=== PATIENT | male | born 1975 | race Caucasian/White ===

== ENCOUNTER 2018-02-05 08:20 | Emergency (ER) | payer SELFPAY ==
[2018-02-05] MEDS ORDERED: Metoclopramide HCl 10 MG/2 ML VIAL ONE (09:11)
[2018-02-05 09:17] LABS: Hemoglobin 17.8 g/dL (14.0-18.0); Mean Corpuscular HGB CONC 32.5 g/dL (32.0-36.0); Mean Corpuscular Hemoglobin 32.1 pg (27.0-31.0); Mean Corpuscular Volume 98.5 fl (80.0-94.0); Mean Platelet Volume 8.2 fL (7.4-10.4); Platelet Count 196 thou/uL (130-400); RBC Distribution Width 12.2 % (11.5-14.5); Red Blood Cell (RBC) Count 5.55 mill/uL (4.70-6.10); White Blood Cell (WBC) Count 7.6 thou/uL (4.8-10.8)
[2018-02-05 09:41] LABS: Band 10 % (5-11); Eosinophils 2 % (0-10); Lymphocytes 20 % (21-51); MDiff Complete? YES; Monocytes 8 % (0-10); Neutrophil 48 % (42-75); PLT Morphology Comment Appears Adequate; RBC Morphology Normal; Reactive Lymphocytes 12 % (0-10)
[2018-02-05 09:44] LABS: CKMB 0.9 ng/mL (0-6.6); Troponin I Less than 0.010 ng/mL (< 0.028)
[2018-02-05 10:09] LABS: ALT (SGPT) 313 U/L (8-55); AST (SGOT) 224 U/L (5-34); Albumin 4.6 g/dL (3.5-5.0); Alkaline Phosphatase 72 U/L (40-150); Anion Gap 15 mmol/L (10-20); BUN (Urea Nitrogen) 8 mg/dL (8.9-20.6); Bilirubin, Total 0.8 mg/dL (0.2-1.2); CK (CPK) 146 U/L (30-200); Calc. Creatinine Clearance 0 mL/min (70-130); Calcium 9.9 mg/dL (7.8-10.44); Carbon Dioxide 24 mmol/L (22-29); Chloride 101 mmol/L (98-107); Estimated GFR-MDRD Greater than 90; Globulin 3.4 g/dL (2.4-3.5); Glucose 94 mg/dL (70-105); Lipase 68 U/L (8-78); Potassium 4.3 mmol/L (3.5-5.1); Sodium 136 mmol/L (136-145)
--- NOTE | 2018-02-05 10:27 | CT ---
CT ABDOMEN AND PELVIS WITH IV CONTRAST: HISTORY: Progressively worsening abdominal pain and cramping. FINDINGS: There is a small infiltrate versus atelectatic change in the medial segment of the right middle lobe. No pleural effusions are seen. The liver, spleen, pancreas, adrenal glands, and kidneys are normal . No calcified gallstones are seen. No free air or free fluid is noted in the abdomen or pelvis. There are prominent periaortic lymph no alie, the largest measuring about 8 mm. An 11 mm lymph node is seen in the periportal region. There are vascular calcifications without evidence of aneurysmal dilatation of the abdominal aorta. There are mild degenerative changes in the spine. The small bowel loops are not abnormally dilated. A nor mal-appearing appendix is seen. There is mild colonic diverticulosis. IMPRESSION: 1. Mild colonic diverticulosis. 2. Prominent abdominal lymph nodes. 3. Small area of infiltrate versus atelectatic change in the right middle lobe. POS: [facility]
[2018-02-05] MEDS ORDERED: ISOVUE-370 76%-LOCM 1 ML ONE (10:33)
[2018-02-05] MEDS ORDERED: Ondansetron ODT 4 MG TAB ONE (11:10)
--- NOTE | 2018-02-05 12:15 | ULT ---
GALLBLADDER ULTRASOUND: HISTORY: Right upper quadrant pain. FINDINGS: Real-time imaging of the right upper quadrant demonstrates small echogenic foci, which does not show definite shadowing and which are within the gallbladder lumen. The gallbladder is slightly contracte d, but the gallbladder wall appears slightly thickened. There is an area of some ring-down artifact in the fundus region. Some of these changes could represent adenomyomatosis. The common duct is 3 m m. The technologist reports a negative ultrasound Hawthorne sign. The visualized liver parenchyma is mildly heterogeneous, but I do not see any discrete mass. The rig ht kidney is normal in size and not obstructed. The pancreas is obscured. IMPRESSION: Slightly underdistended gallbladder but there is suggestion of some slight gallbladder wall thickenin g and some echogenic areas along the gallbladder wall. One area shows some suggestion of some ring-d own artifact in the fundus region. I suspect these changes are on the basis of adenomyomatosis. No definite gallstones identified. POS: [facility]
--- NOTE | 2018-02-05 18:08 | HP ---
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 He has been having epigastric pain for many weeks intermittently. He will experience this pain postprandial. The patient, in addition, drinks a 12 pack of beer per day. He has been trying to quit drinking, trying to wean himself off the beer, but has been experiencing anxi ety and shakiness. He also states he does not smoke, but he only quit two days ago when smoked more than pack a day prior. He is . He states he is trying to stop smoking and quit drinking. He presents to the emergency room with abdominal pain. I am called by nurse practitioner after his wor kup. His white count is 7, hemoglobin 17. Comprehensive metabolic profile normal except for AST, AL T [address] scan of abdomen and pelvis obtained is unremarkable except for colonic diverticu losis, some prominent abdominal lymph nodes 11 to 8 mm. Some atelectatic changes in the right middle lobe. Ultrasound of the gallbladder obtained revealed some echogenic foci and a under-distended gal lbladder with some echogenic areas along the gallbladder wall. There could be some possible changes of adenoma mitosis. Sonographic Hawthorne sign is not reported. There is no ductal biliary dilatation. Common bile duct is 3 mm. ALLERGIES: None. SOCIAL HISTORY: Tobacco pack a day until two days ago when he quit. Alcohol 12 pack a day, recently attempted alcohol weaning and cessation. PAST SURGICAL HISTORY: Nasal surgery, finger surgery, traumatic. PAST MEDICAL HISTORY: Noncontributory. SOCIAL HISTORY: The patient is , works as a cabinet work. REVIEW OF SYSTEMS: A 12-point review of systems is unremarkable. PHYSICAL EXAMINATION: VITAL SIGNS: Blood pressure 130/74, respiratory rate 16, heart rate 74. HEENT: Sclerae nonicteric. SKIN: Nonjaundiced. LUNGS: Clear to auscultation. CARDIAC: Regular rate and rhythm without murmur or gallop. ABDOMEN: Soft but slightly protruded. Slight tenderness with voluntary guarding epigastric, right u pper quadrant, left upper quadrant. EXTREMITIES: No edema. ASSESSMENT AND PLAN: 1. History of alcoholism. Patient is trying to quit alcohol. 2. History of tobacco abuse, cessation over 2 days trying to quit. 3. Gallbladder ultrasound abnormalities consistent with possible small stones and . Could cons ider laparoscopic cholecystectomy, but I told him today that laparoscopic cholecystectomy would not a lleviate all of his symptoms that other possibilities include gastritis and alcohol hepatitis. His t ransaminases are elevated. He is trying to quit drinking alcohol. Consideration for laparoscopic ch olecystectomy and EGD could be given, but patient declines. He does take omeprazole [id number] for many years finding this to have helped some of symptoms in the past. I have encouraged him to d o that and in fact he could consider changing to Nexium double dose [id number] daily. I have t alked to Amanda, nurse practitioner who will give him thiamine and vitamins. I have given him the optio ns of laparoscopic cholecystectomy, EGD, but he has declined and want to think about this. He will a ttempt alcohol cessation, tobacco cessation and follow up in my office in 2-3 weeks.
== END 2018-02-05 12:56 | disposition home or self-care (01) ==
LOC: ERS 08:20
DX: K80.20 Calculus of gallbladder without cholecystitis without obstruction (principal); K29.20 Alcoholic gastritis without bleeding; Z79.82 Long term (current) use of aspirin
CPT/HCPCS: 74177; 76705; 80053; 82553; 83690; 84484; 85025; 96365; 96375; J2270; J2765; Q0162

== ENCOUNTER 2018-11-10 08:36 | Emergency (ER) | payer OTHER, SELFPAY ==
[2018-11-10] MEDS ORDERED: Ibuprofen 200 MG TAB ONE (09:49)
--- NOTE | 2018-11-10 10:11 | RAD ---
RIGHT SHOULDER THREE VIEWS: INDICATIONS: Right shoulder pain. FINDINGS: No fracture or dislocation. The AC joint is normally aligned. IMPRESSION: No acute findings. POS: [facility]
== END 2018-11-10 10:14 | disposition home or self-care (01) ==
LOC: ERS 08:36
DX: M25.511 Pain in right shoulder (principal); K21.9 Gastro-esophageal reflux disease without esophagitis; Z79.82 Long term (current) use of aspirin; Z79.899 Other long term (current) drug therapy

== ENCOUNTER 2019-02-13 09:43 | Emergency (ER) | payer OTHER ==
[2019-02-13 10:23] LABS: #Eosinphils 0.2 thou/uL (0.0-0.7); #Lymphocytes 1.8 thou/uL (1.20-3.40); #Monocytes 0.5 thou/uL (0.11-0.59); #Neutrophils 3.2 thou/uL (1.40-6.50); %Basophils 0.1 % (0.0-1.0); %Eosinophils 3.9 % (0.0-10.0); %Lymphocytes 31.5 % (21.0-51.0); %Monocytes 8.7 % (0.0-10.0); %Neutrophils 55.9 % (42.0-75.0); Hemoglobin 17.4 g/dL (14.0-18.0); Mean Corpuscular Hemoglobin 32.3 pg (27.0-31.0); Mean Corpuscular Volume 97.7 fL (78.0-98.0); Mean Platelet Volume 8.9 fL (7.4-10.4); Platelet Count 146 thou/uL (130-400); RBC Distribution Width 12.7 % (11.5-14.5); White Blood Cell (WBC) Count 5.7 thou/uL (4.8-10.8)
[2019-02-13 10:40] LABS: ALT (SGPT) 254 U/L (8-55); AST (SGOT) 188 U/L (5-34); Albumin 4.5 g/dL (3.5-5.0); Alkaline Phosphatase 59 U/L (40-150); Anion Gap 12 mmol/L (10-20); BUN (Urea Nitrogen) 9 mg/dL (8.9-20.6); Bilirubin, Total 0.9 mg/dL (0.2-1.2); Calc. Creatinine Clearance 0 mL/min (70-130); Calcium 9.5 mg/dL (7.8-10.44); Carbon Dioxide 24 mmol/L (22-29); Chloride 102 mmol/L (98-107); Estimated GFR-MDRD Greater than 90; Globulin 3.5 g/dL (2.4-3.5); Glucose 133 mg/dL (70-105); Lipase 83 U/L (8-78); Potassium 3.8 mmol/L (3.5-5.1); Sodium 134 mmol/L (136-145)
--- NOTE | 2019-02-13 11:28 | ULT ---
ULTRASOUND ABDOMEN LIMITED: (RIGHT UPPER QUADRANT) 02/13/2019 10:59 a.m. HISTORY: A 43-year-old male with right upper quadrant abdominal pain. FINDINGS: Gallbladder: slightly contracted. This may be because the patient is not n.p.o. He ate breakfast with Dr. Malik. The gallbladder wall appears thickened, 5 mm, but that could be due to the contrac hunter state. Alternatively, this could be due to chronic cholecystitis. Again noted is the ring-down artifact arising from a tiny echogenic focus in the gallbladder wall, consistent with adenomyomatosis . No pericholecystic fluid. Common duct: 5 mm. Liver: Echogenicity within normal limits. Pancreas: Nonspecific sonographic appearance. Right kidney: No hydronephrosis. There has been no interval change since 02/05/2018. IMPRESSION: 1. Evidence for adenomyomatosis of the gallbladder. 2. If there is clinical concern for chronic cholecystitis, a nuclear medicine hepatobiliary scan wit h CCK administration, may be useful. 3. Otherwise negative. SRIDEVI Ordoñez POS: [facility]
[2019-02-13 11:55] LABS: Prothrombin Time 13.6 SEC (12.0-14.7)
--- NOTE | 2019-02-14 11:22 | EKG ---
Test Reason : Blood Pressure : / mmHG Vent. Rate : 081 BPM Atrial Rate : 081 BPM P-R Int : 140 ms QRS Dur : 086 ms QT Int : 358 ms P-R-T Axes : 056 003 018 degrees QTc Int : 415 ms Normal sinus rhythm Normal ECG Confirmed by IDRIS JACOB DO ([id number]), science editor ASIA BARRON ([id number]) on 02/14/2019 11:22:07 AM Referred By: Confirmed By:IDRIS JACOB DO
== END 2019-02-13 12:00 | disposition home or self-care (01) ==
LOC: ERS 09:43
DX: K80.50 Calculus of bile duct without cholangitis or cholecystitis without obstruction (principal); K21.9 Gastro-esophageal reflux disease without esophagitis; F17.210 Nicotine dependence, cigarettes, uncomplicated; Z79.82 Long term (current) use of aspirin
CPT/HCPCS: 36415; 76705; 80053; 83690; 84484; 85025; 85610; 85730; 86850; 86900; 86901; 93005

== ENCOUNTER 2019-03-02 08:16 | Day surgery (SDC) | payer OTHER ==
[2019-02-27 08:48] VITALS: BMI 30.5
--- NOTE | 2019-02-27 11:29 | HP ---
HISTORY OF PRESENT ILLNESS: Kvng Benton is a 43-year-old male patient, whom I saw on February 05, 2018, for epigastric pain and nausea. It was felt that he was drinking more than a 12 pack of beer a day as well as rum in addition. He had presented to the emergency room and his liver function tests were normal except for elevated transaminases. CAT scan of the abdomen and pelvis revealed diverticulosis and ultrasound of the gallbladder revealed echogenic foci and nondistended gallbladder concerning for cholelithiasis. He did not have any ductal dilatation. Bile duct was 3 mm. I talked to him at that time regarding alcohol cessation and consideration of cholecystectomy in the future. Since that time, he has cut down to 2 to 3 beers at bedtime. He has continued epigastric right upper quadrant pain intermittently. He presented to the emergency room recently stating that he is ready for his cholecystectomy. In the emergency room, he underwent repeat ultrasound of his gallbladder on 02/13/2019, which revealed an adenomyomatosis of the gallbladder with equivocally thickened gallbladder wall. There were tiny echogenic foci in the gallbladder wall. The plan is for laparoscopic cholecystectomy. He was encouraged to continue efforts with alcohol cessation. On 02/13/2019, white count was 5.7 and hemoglobin was 17.4. Again, his bilirubin was 0.9. AST and ALT 188 and 154. Alkaline phosphatase normal at 59. Lipase was essentially normal. Electrolytes were normal as well as renal function. ALLERGIES: NONE. SOCIAL HISTORY: Tobacco, 2 to 3 cigarettes a day, cut down from a pack a day when I saw him last year. Alcohol, diminished intake remarkably as discussed above. PAST SURGICAL HISTORY: Nasal surgery. MEDICATIONS: 1. Omeprazole. 2. Aspirin 81 mg a day. PRIMARY CARE PHYSICIAN: No primary care physician. REVIEW OF SYSTEMS: Ten-point noncontributory. PHYSICAL EXAMINATION: VITAL SIGNS: Weight 201 pounds, height 5 feet 8 inches, blood pressure 150/94, heart rate 95, temperature 99.5 degrees. HEAD, EARS, EYES, NOSE AND THROAT: Unremarkable. Sclerae are nonicteric. SKIN: Nonjaundiced. LUNGS: Clear to auscultation. CARDIAC: Regular rate and rhythm without murmur or gallop. ABDOMEN: Soft and nontender. No palpable lymphadenopathy. EXTREMITIES: Without edema. ABDOMEN: Soft. Mild tenderness in his right upper quadrant with protuberant abdomen without fluid wave. ASSESSMENT AND PLAN: 1. Cholecystitis. Suspect cholelithiasis and adenomyomatosis. Recommend laparoscopic video cholecystectomy. Risks of infection, bleeding, visceral and biliary injury discussed. Questions were answered. 2. Alcohol, diminished intake. Encourage cessation. 3. Tobacco, diminished use. Encourage cessation. Job ID: [id number]
[2019-03-02] MEDS ORDERED: Ketorolac Tromethamine 30 MG/ML VIAL ONE (09:49)
[2019-03-02] MEDS ORDERED: Midazolam HCl 2 mg/2 ml Vial ONE ×2 (10:46→16:41)
[2019-03-02] MEDS ORDERED: Dexamethasone 20 MG/5 ML VIAL ONE (11:42)
[2019-03-02] MEDS ORDERED: Lidocaine 1% PF 5 ML VIAL ONE (11:42)
[2019-03-02] MEDS ORDERED: PROPOFOL 200 MG/20 ML VIAL ONE (11:42)
[2019-03-02] MEDS ORDERED: Rocuronium Bromide 10 MG/ML (10ML VIAL) ONE (11:42)
[2019-03-02] MEDS ORDERED: Metoclopramide HCl 10 MG/2 ML VIAL ONE (11:42)
[2019-03-02] MEDS ORDERED: Glycopyrrolate 0.2 MG/ML 5 ML SYRINGE ONE (11:42)
[2019-03-02] MEDS ORDERED: diphenhydrAMINE 50 MG/ML VIAL ONE (11:42)
[2019-03-02] MEDS ORDERED: Ondansetron PF 4 MG/2 ML Vial ONE (11:42)
[2019-03-02] MEDS ORDERED: Bupivacaine HCl 0.5%/Epinephrine 1:200,000/PF 30 ml Vial ONE ×2 (14:22→15:18)
[2019-03-02] MEDS ORDERED: Piperacillin/Tazobactam 3.375 GM VIAL ONE (14:40)
[2019-03-02] MEDS ORDERED: Fentanyl 100 MCG/2 ML VIAL ONE ×3 (15:15→17:22)
[2019-03-02] MEDS ORDERED: Morphine 4 MG/ML VIAL ONE (17:11)
[2019-03-02] MEDS ORDERED: HYDROcodone/Acetaminophen 5/325 mg Tablet ONE (18:09)
--- NOTE | 2019-03-02 23:34 | OP ---
DATE OF PROCEDURE: 03/02/2019 PREOPERATIVE DIAGNOSES: Cholecystitis, cholelithiasis, alcoholism. POSTOPERATIVE DIAGNOSES: Cholecystitis, cholelithiasis, alcoholism. PROCEDURE PERFORMED: Laparoscopic video cholecystectomy. ANESTHESIA: General, local 0.5% Marcaine with epinephrine 30 mL. FINDINGS: The patient had a firm liver, perhaps early cirrhosis. DESCRIPTION OF PROCEDURE: The patient was taken to the operating room where under general anesthesia, abdomen was prepared with ChloraPrep and draped in routine fashion. Local anesthetic with 0.5% Marcaine with epinephrine 30 mL was infiltrated in the skin and subcutaneous tissue at each port site. Infraumbilical incision was made, pneumoperitoneum to 15 mm was obtained with a Veress needle, replaced with a 5 port, video laparoscope was inserted. Right subxiphoid incision was made and 11 port was placed. Right subcostal incision was made at midclavicular entrance line, the 5 port was placed. Liver appeared to be very firm and early cirrhotic. Fundus of the gallbladder was grasped at the cephalad. Infundibulum was grasped and reflected laterally. Cystic artery and duct dissected free. Critical view obtained. Cystic artery and duct doubly clipped proximally, divided, and gallbladder dissected free from liver bed obtaining good hemostasis prior to division of the final peritoneal attachments. Gallbladder and contents removed, submitted to Pathology. Good hemostasis ensured with the cautery. Irrigant and pneumoperitoneum evacuated. All instruments were removed and all skin incisions were approximated with interrupted subdermal 4-0 Monocryl and [place] glue applied. Job ID: [id number]
== END 2019-03-02 18:40 | disposition home or self-care (01) ==
LOC: SDC 08:16
PROVIDERS: ATTEND Specialist
PROC: 0FT44ZZ Resection of Gallbladder, Percutaneous Endoscopic Approach (ICD-10-PCS; principal; 2019-03-02)
DX: K80.10 Calculus of gallbladder with chronic cholecystitis without obstruction (principal); F10.20 Alcohol dependence, uncomplicated; F17.210 Nicotine dependence, cigarettes, uncomplicated; Z79.82 Long term (current) use of aspirin; Z79.899 Other long term (current) drug therapy
CPT/HCPCS: 88304; J0131; J0670; J0690; J1100; J1200; J1885; J2001; J2250; J2270; J2405; J2543; J2704; J2765; J3010

== ENCOUNTER 2019-03-06 09:41 | Emergency (ER) | payer OTHER ==
[2019-03-06 10:50] LABS: #Basophils 0.1 thou/uL (0.0-0.2); #Eosinphils 0.2 thou/uL (0.0-0.7); #Monocytes 0.9 thou/uL (0.11-0.59); #Neutrophils 5.2 thou/uL (1.40-6.50); %Basophils 1.1 % (0.0-1.0); %Eosinophils 2.6 % (0.0-10.0); %Lymphocytes 23.8 % (21.0-51.0); %Neutrophils 61.5 % (42.0-75.0); Hemoglobin 17.5 g/dL (14.0-18.0); Mean Corpuscular HGB CONC 32.6 g/dL (32.0-36.0); Mean Corpuscular Hemoglobin 32.8 pg (27.0-31.0); Mean Platelet Volume 8.6 fL (7.4-10.4); Platelet Count 148 thou/uL (130-400); RBC Distribution Width 12.9 % (11.5-14.5); Red Blood Cell (RBC) Count 5.33 mill/uL (4.70-6.10); White Blood Cell (WBC) Count 8.5 thou/uL (4.8-10.8)
[2019-03-06] MEDS ORDERED: Morphine 4 MG/ML VIAL ONE (10:58)
[2019-03-06] MEDS ORDERED: Ondansetron PF 4 MG/2 ML Vial ONE (10:58)
[2019-03-06 11:15] LABS: ALT (SGPT) 190 U/L (8-55); AST (SGOT) 143 U/L (5-34); Albumin 3.9 g/dL (3.5-5.0); Alkaline Phosphatase 61 U/L (40-150); Anion Gap 12 mmol/L (10-20); BUN (Urea Nitrogen) 11 mg/dL (8.9-20.6); Bilirubin, Total 0.9 mg/dL (0.2-1.2); Calc. Creatinine Clearance 0 mL/min (70-130); Calcium 8.9 mg/dL (7.8-10.44); Carbon Dioxide 26 mmol/L (22-29); Chloride 99 mmol/L (98-107); Estimated GFR-MDRD Greater than 90; Globulin 3.2 g/dL (2.4-3.5); Glucose 86 mg/dL (70-105); Lipase 56 U/L (8-78); Potassium 3.7 mmol/L (3.5-5.1); Protein, Total 7.1 g/dL (6.0-8.3); Sodium 133 mmol/L (136-145)
[2019-03-06] MEDS ORDERED: Iopamidol 370 76% 50 ML VIAL FS ONE (11:43)
[2019-03-06] MEDS ORDERED: ISOVUE-370 76%-LOCM 1 ML ONE (11:43)
[2019-03-06 12:17] LABS: Bilirubin Small (Negative); Blood, Urine Negative (Negative); Clarity Clear (Clear); Glucose, Urine (Dipstick) Negative (Negative); Leukocyte Negative (Negative); Nitrite Negative (Negative); Protein, Urine (Dipstick) Negative (Neg-Trace); Urobilinogen 0.2 mg/dL (Less than 2)
--- NOTE | 2019-03-06 12:33 | CT ---
CT ABDOMEN AND PELVIS WITH ORAL AND IV CONTRAST: Date: 03/06/19 HISTORY: Abdominal pain. Status post cholecystectomy 4 days ago. Patient reports bleeding from surgical sites. Denies fever, nausea, or vomiting. COMPARISON: 02/05/18. FINDINGS: There are mild atelectatic changes in the lung bases. There is decreased attenuation of the liver com pared to the spleen consistent with fatty infiltration. The spleen, pancreas, adrenal glands, and kid neys are normal. Interval changes of cholecystectomy are seen with a small amount of air in the gallbladder fossa. The re is edema/fluid in the right lateral abdominal wall. A tiny amount of free fluid is seen in the low er abdomen and pelvis. 11.0 mm periportal lymph node is stable. No new enlarged lymph nodes are seen in the abdomen or pelvi s. The small bowel loops are not abnormally dilated. IMPRESSION: Postop changes of cholecystectomy with tiny amount of free fluid in the abdomen and pelvis, and fluid /edema/hemorrhage in the right lateral abdominal wall. POS: [facility]
[2019-03-06] MEDS ORDERED: Ketorolac Tromethamine 30 MG/ML VIAL ONE (12:51)
== END 2019-03-06 17:08 | disposition home or self-care (01) ==
LOC: ERS 09:41
DX: G89.18 Other acute postprocedural pain (principal); R60.0 Localized edema; K21.9 Gastro-esophageal reflux disease without esophagitis; F17.210 Nicotine dependence, cigarettes, uncomplicated
CPT/HCPCS: 74177; 80053; 81003; 83605; 83690; 85025; 96361; 96374; 96375; J1885; J2270; J2405

== ENCOUNTER 2020-06-06 20:18 | Emergency (ER) | payer OTHER ==
[2020-06-06 21:19] LABS: #Eosinphils 0.2 thou/uL (0.0-0.7); #Lymphocytes 3.5 thou/uL (1.20-3.40); #Monocytes 1.3 thou/uL (0.11-0.59); #Neutrophils 4.4 thou/uL (1.40-6.50); %Basophils 0.4 % (0.0-1.0); %Eosinophils 2.4 % (0.0-10.0); %Lymphocytes 37.1 % (21.0-51.0); %Monocytes 13.8 % (0.0-10.0); %Neutrophils 46.3 % (42.0-75.0); Hemoglobin 19.2 g/dL (14.0-18.0); Mean Corpuscular HGB CONC 34.4 g/dL (32.0-36.0); Mean Corpuscular Hemoglobin 33.8 pg (27.0-31.0); Mean Corpuscular Volume 98.2 fL (78.0-98.0); Mean Platelet Volume 8.2 fL (7.4-10.4); Platelet Count 179 thou/uL (130-400); RBC Distribution Width 12.6 % (11.5-14.5); Red Blood Cell (RBC) Count 5.67 mill/uL (4.70-6.10); White Blood Cell (WBC) Count 9.4 thou/uL (4.8-10.8)
[2020-06-06 21:27] LABS: ALT (SGPT) 240 U/L (8-55); AST (SGOT) 168 U/L (5-34); Albumin 4.9 g/dL (3.5-5.0); Alkaline Phosphatase 67 U/L (40-110); Anion Gap 16 mmol/L (10-20); BUN (Urea Nitrogen) 5 mg/dL (8.9-20.6); Bilirubin, Total 0.4 mg/dL (0.2-1.2); Calc. Creatinine Clearance 0 mL/min (70-130); Calcium 9.1 mg/dL (7.8-10.44); Carbon Dioxide 23 mmol/L (22-29); Chloride 105 mmol/L (98-107); Estimated GFR-MDRD Greater than 90; Globulin 4.1 g/dL (2.4-3.5); Glucose 110 mg/dL (70-105); Potassium 4.2 mmol/L (3.5-5.1); Sodium 140 mmol/L (136-145)
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
[2020-06-06] MEDS ORDERED: Lidocaine 1% (PF) 30 ML VIAL ONE (22:15)
== END 2020-06-07 00:15 | disposition left against medical advice (07) ==
LOC: ERS 20:18 → EEVIPCON 20:18 → ERS 06-07 00:15
DX: S01.511A Laceration without foreign body of lip, initial encounter (principal); M26.34 Vertical displacement of fully erupted tooth or teeth; R20.2 Paresthesia of skin; R60.0 Localized edema; F17.210 Nicotine dependence, cigarettes, uncomplicated; K21.9 Gastro-esophageal reflux disease without esophagitis; Z79.82 Long term (current) use of aspirin
CPT/HCPCS: 36415; 70450; 70486; 80053; 85025; J2001

== ENCOUNTER 2022-04-15 13:11 | Emergency (ER) | payer OTHER, SELFPAY ==
[2022-04-15 14:11] LABS: #Eosinphils 0.2 thou/uL (0.0-0.7); #Monocytes 1.1 thou/uL (0.11-0.59); #Neutrophils 4.9 thou/uL (1.40-6.50); %Basophils 0.6 % (0.0-1.0); %Eosinophils 2.4 % (0.0-10.0); %Lymphocytes 24.5 % (21.0-51.0); %Monocytes 13.2 % (0.0-10.0); %Neutrophils 59.3 % (42.0-75.0); Mean Corpuscular HGB CONC 33.8 g/dL (32.0-36.0); Mean Corpuscular Hemoglobin 33.4 pg (27.0-31.0); Mean Corpuscular Volume 98.9 fL (78.0-98.0); Mean Platelet Volume 8.7 fL (7.4-10.4); Platelet Count 176 thou/uL (130-400); RBC Distribution Width 12.7 % (11.5-14.5); Red Blood Cell (RBC) Count 5.69 mill/uL (4.70-6.10); White Blood Cell (WBC) Count 8.2 thou/uL (4.8-10.8)
[2022-04-15 14:33] LABS: ALT (SGPT) 43 U/L (8-55); AST (SGOT) 36 U/L (5-34); Albumin 4.6 g/dL (3.5-5.0); Alkaline Phosphatase 49 U/L (40-110); Anion Gap 16 mmol/L (10-20); BUN (Urea Nitrogen) 9 mg/dL (8.9-20.6); Bilirubin, Total 0.8 mg/dL (0.2-1.2); Calc. Creatinine Clearance 0 mL/min (70-130); Calcium 9.5 mg/dL (7.8-10.44); Carbon Dioxide 25 mmol/L (22-29); Chloride 99 mmol/L (98-107); Estimated GFR 113; Globulin 3.2 g/dL (2.4-3.5); Glucose 103 mg/dL (70-105); Lipase 77 U/L (8-78); Potassium 3.8 mmol/L (3.5-5.1); Protein, Total 7.8 g/dL (6.0-8.3); Sodium 136 mmol/L (136-145)
[2022-04-15 15:49] LABS: Bilirubin Negative (Negative); Blood, Urine Negative (Negative); Clarity Clear (Clear); Glucose, Urine (Dipstick) Normal (Negative); Ketone, Urine Negative (Negative); Leukocyte Negative Leu/uL (Negative); Nitrite Negative (Negative); Protein, Urine (Dipstick) Negative (Neg-Trace); Specific Gravity, Urine 1.007 (1.002-1.036); Urobilinogen Normal mg/dL (Less than 2); pH, Urine 7.5 (5.0-9.0)
== END 2022-04-15 18:21 | disposition home or self-care (01) ==
LOC: ERS 13:11
DX: M54.9 Dorsalgia, unspecified (principal); R07.9 Chest pain, unspecified; I10 Essential (primary) hypertension; K21.9 Gastro-esophageal reflux disease without esophagitis; F17.210 Nicotine dependence, cigarettes, uncomplicated; Z79.899 Other long term (current) drug therapy; X50.0XXA Overexertion from strenuous movement or load, initial encounter
CPT/HCPCS: 36415; 71045; 80053; 81003; 83690; 84484; 85025; 93005

== ENCOUNTER 2022-12-30 21:11 | Emergency (ER) | payer SELFPAY ==
[~2022-12-30 21:11] MED LIST: Iopamidol 370 76% 100 ML VIAL ONE
[2022-12-30] MEDS ORDERED: fentaNYL 50 mcg/mL 1 mL Vial ONE (22:28)
[2022-12-31] MEDS ORDERED: HYDROcodone/Acetaminophen 10/325 mg Tablet ONE (00:34)
== END 2022-12-31 01:24 | disposition home or self-care (01) ==
LOC: ERS 22:11
DX: S09.90XA Unspecified injury of head, initial encounter (principal); S20.212A Contusion of left front wall of thorax, initial encounter; I10 Essential (primary) hypertension; K21.9 Gastro-esophageal reflux disease without esophagitis; F17.210 Nicotine dependence, cigarettes, uncomplicated; Y04.8XXA Assault by other bodily force, initial encounter
CPT/HCPCS: 70450; 70498; 71046; 72125; 96374; J3010; Q9967

== ENCOUNTER 2024-07-06 17:04 | Inpatient (IN) | payer BC, SELFPAY ==
[~2024-07-06 17:04] MED LIST changes: -Iopamidol 370 76% 100 ML VIAL ONE; +Iopamidol-370 76% 500 ML MDV (1 ML CHARGE) ONE
[2024-07-06 19:11] LABS: ALT (SGPT) 155 U/L (8-55); AST (SGOT) 126 U/L (5-34); Albumin 4.4 g/dL (3.5-5.0); Alkaline Phosphatase 50 U/L (40-110); Anion Gap 18 mmol/L (10-20); BUN (Urea Nitrogen) 7 mg/dL (8.9-20.6); Bilirubin, Total 0.7 mg/dL (0.2-1.2); Calc. Creatinine Clearance 0 mL/min (70-130); Calcium 9.2 mg/dL (7.8-10.44); Carbon Dioxide 22 mmol/L (22-29); Chloride 89 mmol/L (98-107); Estimated GFR 111; Globulin 3.8 g/dL (2.4-3.5); Glucose 87 mg/dL (70-105); Lipase 59 U/L (8-78); Potassium 4.5 mmol/L (3.5-5.1); Protein, Total 8.2 g/dL (6.0-8.3); Sodium 124 mmol/L (136-145)
[2024-07-06 19:16] LABS: Troponin I Less than 0.010 ng/mL (< 0.028)
[2024-07-06 19:26] LABS: Hemoglobin 16.2 g/dL (14.0-18.0); Mean Corpuscular Hemoglobin 33.2 pg (27.0-31.0); Mean Corpuscular Volume 92.2 fL (78.0-98.0); Mean Platelet Volume 9.8 fL (7.4-10.4); Platelet Count 160 10x3/uL (130-400); RBC Distribution Width 12.8 % (11.5-14.5); Red Blood Cell (RBC) Count 4.88 mill/uL (4.70-6.10)
[2024-07-06 20:16] LABS: Band 2 % (5-11); Eosinophils 5 % (0-10); Large Platelets 5.1 % (0-5); Lymphocytes 19 % (21-51); Monocytes 15 % (0-10); Neutrophil 59 % (42-75); Platelet Adequacy Comment Platelets Normal; Target Cells SLIGHT = 2-5 cells HPF (0-1)
[2024-07-06] MEDS ORDERED: Morphine 4 MG/ML VIAL ONE (23:07)
[2024-07-06] MEDS ORDERED: Ondansetron PF 4 MG/2 ML Vial ONE (23:07)
[2024-07-07 01:49] VITALS: BMI 31.9
[2024-07-07] MEDS ORDERED: Lorazepam 1 MG TAB PO PRN (02:20)
[2024-07-07] MEDS ORDERED: Ondansetron PF 4 MG/2 ML Vial IVP PRN (02:20)
[2024-07-07] MEDS ORDERED: Lorazepam 2 MG/ML VIAL IM PRN (02:20)
[2024-07-07] MEDS ORDERED: Electrolyte Replacement Protocol 1 EACH FS SCH (02:30)
[2024-07-07 03:50] LABS: #Basophils 0.03 10x3/uL (0.0-0.2); %Basophils 0.6 % (0.0-1.0); %Eosinophils 3.8 % (0.0-10.0); %Lymphocytes 22.2 % (21.0-51.0); %Monocytes 11.8 % (0.0-10.0); %Neutrophils 61.2 % (42.0-75.0); Hematocrit 43.9 % (42.0-52.0); Hemoglobin 16.1 g/dL (14.0-18.0); Mean Corpuscular HGB CONC 36.7 g/dL (32.0-36.0); Mean Corpuscular Hemoglobin 33.4 pg (27.0-31.0); Mean Corpuscular Volume 91.1 fL (78.0-98.0); Mean Platelet Volume 9.7 fL (7.4-10.4); Platelet Count 158 10x3/uL (130-400); RBC Distribution Width 12.8 % (11.5-14.5); Red Blood Cell (RBC) Count 4.82 mill/uL (4.70-6.10)
[2024-07-07] MEDS ORDERED: Thiamine HCl 200 MG/2 ML VIAL ONE (04:24)
[2024-07-07] MEDS ORDERED: Lorazepam 1 MG TAB ONE (04:24)
[2024-07-07 04:30] LABS: ALT (SGPT) 135 U/L (8-55); AST (SGOT) 103 U/L (5-34); Albumin 4.2 g/dL (3.5-5.0); Alkaline Phosphatase 46 U/L (40-110); Anion Gap 17 mmol/L (10-20); BUN (Urea Nitrogen) 7 mg/dL (8.9-20.6); Bilirubin, Total 0.9 mg/dL (0.2-1.2); Calc. Creatinine Clearance 147 mL/min (70-130); Calcium 9.1 mg/dL (7.8-10.44); Carbon Dioxide 20 mmol/L (22-29); Chloride 97 mmol/L (98-107); Estimated GFR 107; Globulin 3.6 g/dL (2.4-3.5); Glucose 121 mg/dL (70-105); Potassium 3.6 mmol/L (3.5-5.1); Protein, Total 7.8 g/dL (6.0-8.3); Sodium 130 mmol/L (136-145)
[2024-07-07] MEDS: Thiamine HCl 200 MG/2 ML VIAL SLOW IVP SCH (04:44)
[2024-07-07] MEDS: Sodium Chloride 0.9% 1,000 ML IV SCH (04:44)
[2024-07-07] MEDS: Nicotine 21 MG PATCH TD SCH (04:44)
[2024-07-07] MEDS: Lorazepam 1 MG TAB PO SCH (04:44)
[2024-07-07 04:53] LABS: HBsAg Index 0.28 S/CO (0-0.99); Hep A IgM AB NONREACTIVE (NonReactive); Hep A IgM S/CO 0.16 S/CO (0-0.79); Hep B Core IgM Index 0.08 S/CO (0-0.79); Hep B Surf Ag NONREACTIVE S/CO (NonReactive); Hep C IgG Ab Reflex HepC Qnt S/CO (NonReactive); Hep C Index 15.78 S/CO (0-0.79); Hepatitis B Core IgM Abs NONREACTIVE S/CO (NonReactive)
[2024-07-07] MEDS: Famotidine 20 MG TAB PO SCH (10:01)
[2024-07-07] MEDS: Multivit, Therapeutic 1 TAB PO SCH (10:02)
[2024-07-07] MEDS: Lidocaine 4% Patch TD SCH (10:02)
[2024-07-07] MEDS: Ketorolac Tromethamine 30 MG (1 mL) VIAL IVP PRN (10:02)
[2024-07-07] MEDS: Lisinopril 10 MG TAB PO SCH (10:02)
[2024-07-07] MEDS: Folic Acid 1 MG TAB PO SCH (10:02)
[2024-07-07] MEDS: FLU (Fluarix Triv) TS24-25(6MOS UP)/PF 45 MCG/0.5 ML Syringe IM ONE (10:03)
[2024-07-07 11:05] LABS: Bacteria/HPF None Seen HPF (None Seen); Bilirubin Negative (Negative); Blood, Urine Negative (Negative); CAUTI Indications for Culture Pelvic or flank pain; Clarity Clear (Clear); Glucose, Urine (Dipstick) Normal (Negative); Ketone, Urine Negative (Negative); Leukocyte Negative Leu/uL (Negative); Nitrite Negative (Negative); Protein, Urine (Dipstick) Negative (Neg-Trace); RBC/HPF 0-3 HPF (0-3); Specific Gravity, Urine 1.002 (1.002-1.036); Squamous Epithelial None Seen HPF (0-3); Urobilinogen Normal mg/dL (Less than 2); WBC/HPF 0-3 HPF (0-3)
[2024-07-07 11:07] LABS: Urine Culture Reflex No No
[2024-07-07 11:14] LABS: Amphetamine Not Detected (NotDetected); Barbiturates Screen Not Detected (NotDetected); Benzodiazepine Screen Detected (NotDetected); Cocaine Metabolite Screen Not Detected (NotDetected); Methadone Not Detected (NotDetected); Methamphetamine Not Detected (NotDetected); Opiate Screen Detected (NotDetected); Oxycodone Screen Not Detected (NotDetected); Phencyclidine (PCP) Not Detected (NotDetected); THC/Cannabinoid Screen Detected (NotDetected); Tricyclic Screen Not Detected (NotDetected)
[2024-07-07] MEDS: Tamsulosin HCl 0.4 MG CAP PO SCH (20:23)
[2024-07-07] MEDS: Transdermal Patch Removal TOP SCH (20:33)
[2024-07-08] MEDS ORDERED: Lorazepam 1 MG TAB PO PRN (02:21)
[2024-07-08 09:14] LABS: ALT (SGPT) 178 U/L (8-55); AST (SGOT) 173 U/L (5-34); Albumin 3.8 g/dL (3.5-5.0); Alkaline Phosphatase 46 U/L (40-110); Anion Gap 12 mmol/L (10-20); BUN (Urea Nitrogen) 7 mg/dL (8.9-20.6); Bilirubin, Total 0.8 mg/dL (0.2-1.2); Calc. Creatinine Clearance 153 mL/min (70-130); Calcium 9.2 mg/dL (7.8-10.44); Carbon Dioxide 24 mmol/L (22-29); Chloride 105 mmol/L (98-107); Estimated GFR 109; Globulin 3.4 g/dL (2.4-3.5); Glucose 111 mg/dL (70-105); Potassium 3.7 mmol/L (3.5-5.1); Protein, Total 7.2 g/dL (6.0-8.3); Sodium 137 mmol/L (136-145)
[2024-07-08] MEDS: Morphine 2 MG/ML VIAL SLOW IVP SCH (12:20)
[2024-07-08] MEDS: Morphine 2 MG/ML VIAL SLOW IVP PRN (18:41)
[2024-07-08] MEDS: hydrALAZINE 20 MG/ML VIAL SLOW IVP PRN (19:59)
[2024-07-08] MEDS: Lisinopril 20 MG TAB PO SCH (20:24)
[2024-07-08] MEDS: traMADol HCl 50 MG TAB PO PRN (21:33)
[2024-07-08] MEDS: Acetaminophen 325 MG TAB PO PRN (21:34)
[2024-07-09] MEDS ORDERED: Lorazepam 1 MG TAB PO PRN (02:21)
[2024-07-09] MEDS: Lorazepam 0.5 MG TAB PO SCH (03:26)
[2024-07-09] MEDS: Lisinopril 20 MG TAB PO SCH ×2 (08:31→08:50)
[2024-07-09 09:30] LABS: Anion Gap 16 mmol/L (10-20); BUN (Urea Nitrogen) 7 mg/dL (8.9-20.6); Calc. Creatinine Clearance 155 mL/min (70-130); Calcium 9.9 mg/dL (7.8-10.44); Carbon Dioxide 24 mmol/L (22-29); Chloride 99 mmol/L (98-107); Estimated GFR 109; Glucose 100 mg/dL (70-105); Potassium 3.4 mmol/L (3.5-5.1); Sodium 136 mmol/L (136-145)
[2024-07-09 11:19] VITALS: BP 159/93; TEMP 98.2
[2024-07-09] MEDS: Potassium Chloride 20 MEQ TAB PO SCH (11:21)
[2024-07-09 20:37] LABS: Hep C PCR-Quant HCV Not Detected IU/mL (.)
[2024-07-10] MEDS ORDERED: Lorazepam 0.5 MG TAB PO PRN (02:21)
[2024-07-10] MEDS ORDERED: Thiamine 100 MG TAB PO SCH (09:00)
== END 2024-07-09 11:25 | disposition home or self-care (01) | DRG 897 ==
LOC: ERS 17:04 → ERHOLD 07-07 00:47 → MSONC 07-07 07:33 → OBSVTOIN 07-08 07:33
PROVIDERS: ADMIT Student in an Organized Health Care Education/Training Program; ATTEND Internal Medicine
DX: F10.239 Alcohol dependence with withdrawal, unspecified (principal); E87.1 Hypo-osmolality and hyponatremia; I10 Essential (primary) hypertension; K21.9 Gastro-esophageal reflux disease without esophagitis; Z90.49 Acquired absence of other specified parts of digestive tract; Z90.89 Acquired absence of other organs; N40.0 Benign prostatic hyperplasia without lower urinary tract symptoms; Z79.899 Other long term (current) drug therapy; F41.9 Anxiety disorder, unspecified; Z71.6 Tobacco abuse counseling; B19.20 Unspecified viral hepatitis C without hepatic coma; K74.60 Unspecified cirrhosis of liver
CPT/HCPCS: 36415; 71045; 74177; 76705; 80048; 80053; 80074; 80306; 80307; 81001; 82570; 83690; 83930; 83935; 84300; 84484; 85025; 87522; 93005; 93975; 96374; 96375; J0360; J1885; J2272; J2405; J3411; J7030; Q9967

== ENCOUNTER 2024-07-22 14:01 | Emergency (ER) | payer BC ==
[2024-07-28 16:17] LABS: ALT (SGPT) 119 U/L (8-55); AST (SGOT) 114 U/L (5-34); Alkaline Phosphatase 45 U/L (40-110); Anion Gap 15 mmol/L (10-20); BUN (Urea Nitrogen) 6 mg/dL (8.9-20.6); Bilirubin, Total 0.3 mg/dL (0.2-1.2); CK (CPK) 137 U/L (30-200); Calc. Creatinine Clearance 0 mL/min (70-130); Calcium 9.3 mg/dL (7.8-10.44); Carbon Dioxide 23 mmol/L (22-29); Chloride 108 mmol/L (98-107); Estimated GFR 107; Globulin 3.7 g/dL (2.4-3.5); Glucose 107 mg/dL (70-105); Magnesium 1.9 mg/dL (1.6-2.6); Potassium 3.8 mmol/L (3.5-5.1); Protein, Total 7.7 g/dL (6.0-8.3); Sodium 142 mmol/L (136-145)
[2024-07-28 16:19] LABS: Hematocrit 45.4 % (42.0-52.0); Hemoglobin 16.2 g/dL (14.0-18.0); Mean Corpuscular HGB CONC 35.7 g/dL (32.0-36.0); Mean Corpuscular Hemoglobin 33.3 pg (27.0-31.0); Mean Corpuscular Volume 93.4 fL (78.0-98.0); Mean Platelet Volume 9.9 fL (7.4-10.4); Platelet Count 252 10x3/uL (130-400); RBC Distribution Width 13.6 % (11.5-14.5); Red Blood Cell (RBC) Count 4.86 mill/uL (4.70-6.10); White Blood Cell (WBC) Count 6.29 10x3/uL (4.8-10.8)
[2024-07-28 16:20] LABS: #Basophils 0.07 10x3/uL (0.0-0.2); #Eosinophils 0.26 10x3/uL (0.0-0.7); #Monocytes 0.89 10x3/uL (0.11-0.59); #Neutrophils 3.75 10x3/uL (1.40-6.50); %Basophils 1.1 % (0.0-1.0); %Eosinophils 4.1 % (0.0-10.0); %Lymphocytes 20.7 % (21.0-51.0); %Monocytes 14.1 % (0.0-10.0); %Neutrophils 59.7 % (42.0-75.0); RBC Morph Comment Within Normal Limits
[2024-07-28 16:21] LABS: RBC Morphology Within Normal Limits
[2024-07-28 16:24] LABS: Clarity Clear (Clear); Leukocyte Negative Leu/uL (Negative); Nitrite Negative (Negative); Protein, Urine (Dipstick) Negative (Neg-Trace); Specific Gravity, Urine 1.004 (1.002-1.036); pH, Urine 6.5 (5.0-9.0)
[2024-07-28 16:25] LABS: Bacteria/HPF None Seen HPF (None Seen); Bilirubin Negative (Negative); Blood, Urine Negative (Negative); Glucose, Urine (Dipstick) Normal (Negative); Ketone, Urine Negative (Negative); RBC/HPF 0-3 HPF (0-3); Squamous Epithelial 0-3 HPF (0-3); Urobilinogen Normal mg/dL (Less than 2); WBC/HPF 0-3 HPF (0-3)
== END 2024-07-23 17:04 | disposition home or self-care (01) ==
LOC: ERS 14:01
DX: M79.89 Other specified soft tissue disorders (principal); I10 Essential (primary) hypertension; F17.210 Nicotine dependence, cigarettes, uncomplicated; Z79.899 Other long term (current) drug therapy
CPT/HCPCS: 80053; 81003; 82550; 83735; 85025; 99283